=== PATIENT | male | born 1945 | race Caucasian/White ===

== ENCOUNTER → 2023-03-12 06:48 | Outpatient (CLI) | payer MEDICARE, OTHER, SELFPAY ==
[2023-03-12 07:21] LABS: Add Manual Diff / Slide Review NO; Basophils Absolute Auto 0 /uL (0-100); Basophils Percent Auto 0.6 % (0-2); Eosinophils Absolute Auto 300 /uL (0-450); Eosinophils Percent Auto 4.2 % (2-4); Hematocrit 42.7 % (41-53); Hemoglobin 14.6 g/dL (13.5-17.5); Lymphocytes Absolute Auto 1300 /uL (1100-4500); Lymphocytes Percent Auto 18.8 % (25-40); Mean Corpuscular HGB Conc 34.3 % (30-36); Mean Corpuscular Hemoglobin 34.3 PG (26-34); Mean Corpuscular Volume 100.1 fL (80-100); Monocytes Absolute Auto 700 /uL (0-900); Monocytes Percent Auto 10.5 % (3-14); Neutrophils Absolute Auto 4700 /uL (1500-7000); Neutrophils Percent Auto 65.9 % (50-75); Platelet Count 225 X10^3/uL (150-400); Red Blood Cell Count 4.27 X10^6/uL (4.5-5.9); White Blood Cell Count 7.1 X10^3/uL (4.5-11.0)
[2023-03-12 07:41] LABS: BUN Creatinine Ratio 21.6 (6-22); Blood Urea Nitrogen 21 mg/dL (9-20); Calcium 8.7 mg/dL (8.4-10.2); Carbon Dioxide 29 mmol/L (22-32); Chloride 102 mmol/L (98-107); Estimated Glomerular Filt Rate > 60 mL/min (>60); Glucose 114 mg/dL (80-110); HEMOLYSIS 22 (0-50); Potassium 4.4 mmol/L (3.4-5.1); Sodium 136 mmol/L (137-145)
== END ==
PROVIDERS: Referring Provider Orthopaedic Surgery; Visit Provider Orthopaedic Surgery
DX: Z01.818 Encounter for other preprocedural examination (principal); Z01.812 Encounter for preprocedural laboratory examination
CPT/HCPCS: 36415; 80048; 85025; 93005

== ENCOUNTER 2023-03-31 08:09 | Inpatient (IN) | payer MEDICARE, OTHER, SELFPAY ==
[2023-03-26 09:30] VITALS: BMI 28.7
--- NOTE | 2023-03-31 | DI.RAD.S_ITS ---
PROCEDURE: XR SHOULDER RT MIN 2V INDICATIONS: Right Shoulder Intra-opt Images TECHNIQUE: 5 intraoperative views of the shoulder were acquired. COMPARISON: None. FINDINGS: Intraoperative views demonstrate the right shoulder reverse arthroplasty in the expected position. IMPRESSION: Intraoperative guidance provided. Dictated by: Zak Baltazar M.D. on 03/31/2023 at 15:05 Approved by: Zak Baltazar M.D. on 03/31/2023 at 15:07
[2023-03-31 08:38] VITALS: BP 127/90; PULSE 64; RESP 17; TEMP 36.5; O2SAT 99; BMI 28.7
[2023-03-31] MEDS: LACTATED RINGERS 1,000 ML 84 ML IV (08:49)
--- NOTE | 2023-03-31 10:23 | PM.PREOP ---
Pre-operative Note Interval Note History & Physical reviewed/Exam performed by Physician: Yes Changes to H&P: No
--- NOTE | 2023-03-31 10:59 | SUR.PREOP ---
Block start time [1100] . Monitoring initiated and maintained throughout procedure. Oxygen and medications given by anesthesiologist. Patient remained stable throughout procedure, no adverse reactions noted. Block end time [1104].
[2023-03-31] MEDS: CEFAZOLIN 2 GM/100 ML PREMIX 100 ML IV (11:08)
[2023-03-31] MEDS: LACTATED RINGERS 1,000 ML 42 ML IV (11:45)
--- NOTE | 2023-03-31 11:50 | SUR.OPER ---
Addendum entered by Nancy Cline R.N. 03/31/23 13:12: Skytron bed used for beach chair position, gel pad used on left arm for padding. Left arm taped down and cloth tape used across abdomen. No cloth tape across legs. Original Note: Beach chair position. Lower body on padded OR bed. Head in foam padded head cradle, secured with straps. Non-operative arm secured <90 degrees abduction. Pillow under knees. Safety belt at thigh. Cloth tape over blanket over lower legs. Right arm in control of surgeon.
[2023-03-31] MEDS: BUPIVACAINE 0.25% INJ (12:16)
[2023-03-31] MEDS: EPINEPHRINE 0.1 MG INJ (12:16)
[2023-03-31] MEDS: TRANEXAMIC ACID 1,000 MG VIAL 1000 MG INJ ×2 (14:16→14:20)
--- NOTE | 2023-03-31 14:31 | PM.OP.1 ---
Operative Date/Time/Diagnoses Date of procedure: 03/31/23 Time of procedure: 14:31 Pre-op diagnosis: right rotator cuff arthropathy Post-op diagnosis: same Procedure & Clinicians Procedure: Right Reverse Total Shoulder Arthoplasty Same procedure as scheduled: Yes Indications: Indications: This is a 78-year-old male who has [rotator cuff arthropathy]. Symptoms have been present for years, insidious onset. Patient has failed conservative therapy.. After extensive discussion in clinic, they wished to go forward with surgery. Risks and benefits were described including the risk of infection, bleeding, damage to internal structures including nerves. We also discussed the risk of failure of surgery and the need for revision surgery as well as the risk of anesthesia. The patient expressed understanding with these risks and wished to go forward with surgery. Surgeon: Abner Pacheco Tool Crib Supervisor: Radha Bernard Anesthesia Type: General Operative Notes Findings: Findings: Osteoarthritis of the glenoid and humeral head as well as a defient rotator cuff as noted on preoperative imaging and under direct visualization Closure Type: primary Specimen(s): none sent Prosthetic devices, grafts, tissues, transplants, or devices: Tornier implants Base plate: standard 25 mm, +3 mm offset Glenosphere: 39 mm Stem: Perform 3+ Poly: +0, 10 degree Estimated Blood Loss (mL): 50 Procedure in detail: Patient was seen in the preoperative holding unit. The correct right shoulder was identified and marked with my initials. Again we discussed the risks and benefits of surgery and they wished to go forward with surgery. The patient was brought back to the operating room and placed supine on the operating table. Smooth endotracheal intubation was performed by anesthesia. All prominences were padded and they were placed into the beach chair position. Intravenous antibiotics were given. The right shoulder was then prepped with the standard sterile preparation and draping. A time-out was then performed in my initials were again identified on the correct shoulder. 1 g of IV tranexamic acid was given. A standard deltopectoral incision was made. Skin flaps were made. The cephalic vein was identified and retracted laterally. This was protected throughout the remainder of the case. Sharp dissection was made along the deltoid, subacromial and subcoracoid space to release adhesions. The conjoined tendon was identified and the axillary nerve was palpated and continuous using the tug test. It was protected throughout the remainder of the case. A brown retractor was placed underneath the deltoid muscle and a darach retractor underneath the conjoint tendon. The anterior circumflex artery and associated veins on the lower border of the subscapularis were identified and tied off using 0-Vicryl. The biceps tendon was identified in the bicipital groove. This was released from its sheath, and taken from its origin on the glenoid and tied into the pectoralis tendon for a solid tenodesis. We then began a subscapularis peel. The subscapularis was tagged with an Ethibond suture. A 360 degree circumferential release of the subscapularis was performed with protection of the axillary nerve. The coracohumeral ligament was released at the base of the coracoid. The coracoacromial ligament was left intact. The shoulder was then dislocated. Osteophytes were removed using combination of rongeur and osteotome. The rotator cuff was noted to be insufficient. An intramedullary guide was used set at version of 30?. Using an oscillating saw a conservative humeral head cut was made. Impaction reamers were reamed up to a size 3 stem with a built-in angle 135?. A neck protector was placed. Attention was then turned to the glenoid. After retracting the humeral head posteriorly a circumferential release was performed of the capsule with protection of the axillary nerve. The labrum was then released starting at the biceps anchor and going around the rim a small amount of triceps was released from the inferior glenoid. A center guide pin was then placed using the guide, followed by Reamer. After adequate cartilage was removed the center drill hole was drilled and measured. The base plate was then implanted and screwed into place. The superior drill hole was drilled and filled in a nonlocking fashion, followed by the inferior and anterior holes in locking fashion. A 39 glenosphere was then selected and screwed into place onto the base plate. Turning back to the humerus, the humeral head was delivered and trialed with a 0, 10 degree polyethylene. The arm was taken through range of motion and this was felt to be stable. The trial was then removed and a dilute Betadine wash was then performed with 1 L of sterile saline. Before placing the final implant, drill holes were made in the bicipital groove for the subscapularis repair, and sutures were passed through the drill holes. The final stem was then impacted into the humerus. The shoulder was then reduced and again brought through range of motion and was felt to be stable. The interval was then closed using #2 Ethibond. The subscapularis was then repaired using a modified racking hitch with nice loupes. The deltopectoral interval was then closed with #2 Ethibond. The skin was closed with 2-0 PDS and narda followed by Aquacel dressing. Patient was awoken from anesthesia and brought back to the postoperative recovery unit without issue. They were placed into a sling. Assisting participation: This operation could not have been safely performed (without compromising the technical results or length of the procedure) without the assistance of a skilled surgical territory manager. The surgical territory manager was medically necessary for proper positioning, retraction and manipulation of instruments, proper exposure, graft prep, and manipulation of tissue. Complications: none Post-operative Condition: stable Disposition: PACU Plan for aftercare: Postoperative instructions: Sling to remain on for 6 weeks. No external rotation past neutral for 6 weeks. Okay for him to come off her shower. Okay to shower over the Aquacel dressing. If any water gets underneath the dressing, remove the dressing. First postoperative visit in 2 weeks.
[2023-03-31 14:32] VITALS: BP 145/72; PULSE 100; RESP 16; TEMP 36.1; O2SAT 96
[2023-03-31 14:37] VITALS: BP 134/70; PULSE 97; RESP 19; O2SAT 96
--- NOTE | 2023-03-31 14:37 | SUR.PHASEI ---
Spoke with Dr Pacheco and no xray to be done in PACU.
[2023-03-31 14:42] VITALS: BP 131/71; PULSE 95; RESP 16; O2SAT 95
[2023-03-31 14:51] VITALS: BP 121/69; PULSE 97; RESP 18; O2SAT 97
[2023-03-31] MEDS: OXYCODONE/ACETAMINOPHEN 5/325 TABLET 1 TAB PO (14:55)
[2023-03-31 14:59] VITALS: BP 127/67; PULSE 97; RESP 18; TEMP 36.2; O2SAT 95
--- NOTE | 2023-03-31 15:37 | SUR.PHASEII ---
pt brought to bedside for DC instructions. Has been going to PT pre op and has appts set for after surgery. Informed pt how to dress with sling in place. Denies pain, good pain control with block. no N/V. tolerating PO. Has all post op meds already. WC to car with his .
--- NOTE | 2023-04-12 09:08 | P.PCN_ITS ---
Peripheral Nerve Block Note Pre-Procedure Reason for block: Attending surgeon request/order for post-op pain management Pre-procedure checklist: Patient examined and chart reviewed, Risks, benefits, alternatives of block discussed, questions answered, Verification of anti- coagulation status, Site confirmed, Timeout performed and Standard ASA monitors applied Consent obtained from: Patient Procedure Date of procedure: 03/31/23 Start Time: 10:45 End Time: 10:55 Performed by: Arturo Hays Sedation - enter dose in comment field: IV Midazolam (mg) (2) and IV Fentanyl (mcg) (100) Location: Pre-Op Position: Supine Laterality: Right Sterile Technique: Sterile gloves and Chloraprep Skin Wheal: Lidocaine 1% mL: 2 Gauge: 27 Equipment Single injection - Needle brand, gauge, length: 22g Medications Medications - enter concentration (%) & mL in comment field: Bupivacaine (0.5- 20ml) Test Dose: Negative Incremental aspiration prior to injection: Yes Ultrasound Reason for Ultrasound: U/S guidance used for needle placement and U/S used to visualize spread of anesthetic Image printed/saved/archived: Yes Vital signs VS: VSS Oxygen Delivery Method Room Air
--- NOTE | 2023-04-12 09:12 | PM.PNB.1 ---
Peripheral Nerve Block Note Pre-Procedure Reason for block: Attending surgeon request/order for post-op pain management Consent obtained from: Patient Vital signs VS: Oxygen Delivery Method Room Air
== END 2023-03-31 15:41 | disposition home or self-care (01) | DRG 483 ==
PROVIDERS: Admitting Provider Orthopaedic Surgery; Referring Provider Orthopaedic Surgery; Visit Provider Orthopaedic Surgery
PROC: 0RRJ00Z Replacement of Right Shoulder Joint with Reverse Ball and Socket Synthetic Substitute, Open Approach (ICD-10-PCS; CPT 23472; principal; 2023-03-31 10:45)
DX: M19.011 Primary osteoarthritis, right shoulder (principal); Z87.891 Personal history of nicotine dependence
CPT/HCPCS: 64450; 73030; 76000; C1776; J0171; J0330; J0690; J1100; J2250; J2405; J2704; J3010